=== PATIENT | female | born 1950 | race Caucasian/White ===

== ENCOUNTER 2018-02-10 13:27 | Emergency (ER) | payer SELFPAY ==
--- NOTE | 2018-02-10 13:45 | EDPHY ---
H & P Stated Complaint: RESP ISSUES FOR 3 MONTHS Source: Patient Exam Limitations: No limitations - Personal History Current Tetanus/Diphtheria Vaccine: Unsure - Medical/Surgical History Hx Asthma: No Hx Chronic Respiratory Disease: No Hx Diabetes: No Hx Cardiac Disease: No Hx Renal Disease: No Hx Cirrhosis: No Hx Alcoholism: No Hx HIV/AIDS: No Hx Splenectomy or Spleen Trauma: No Other PMH: denies - Social History Smoking Status: Former smoker Time Seen by Provider: 02/10/18 13:44 HPI/ROS: HPI: This is a 67-year-old female who presents with Chief Complaint: Respiratory issues for 3 months Location: chest Quality: dyspnea Duration: 3 months Signs and Symptoms: no shortness of breath at rest, no shortness of breath on exertion, + productive cough, no chest pain, no palpitations, no lower extremity edema, no wheezing, no orthopnea, no paroxysmal nocturnal dyspnea, no fever, no injury/trauma, no hemoptysis, no carpal pedal spasms Timing: Daily, worsening Severity: moderate Context:Patient is a former light smoker presents complaints with productive cough is associated pleuritic bilateral anterior chest discomfort that has been worsening the last 1 week. She reports that in September in October she had which she believed to be the flu and bronchitis. She did not see a doctor at that time and just use supportive measures. She reports that the cough has continued daily and is worse at night. She is most concerned that that over the last 1-2 weeks the cough has now become productive with associated discomfort with coughing spells and fatigue. No history of lung disease. No long distance travel. Does not have a primary care provider. Modifying Factors: [id number] methods no relief Comment: ROS: see HPI Constitutional: No fever, no chills, no weight loss Eyes: No blurred vision Respiratory: No shortness of breath, no cough Cardiovascular: No chest pain, no palpitations, no lower extremity edema Gastrointestinal: No nausea, no vomiting, no diarrhea Genitourinary: No dysuria Extremities: No myalgias Neurologic: No weakness, no numbness Skin: No rashes Hematologic: No bruising, no bleeding MEDICAL/SURGICAL/SOCIAL HISTORY: Medical history: Generally healthy. Does not take any regular medications. Surgical history: Denies Social history: Former smoker. Retired. Lives in [place]. CONSTITUTIONAL: Polite and cooperative, nontoxic-appearing elderly white female , awake and alert, no obvious distress HEENT: Atraumatic and normocephalic, PERRL, EOMI. Nares patent; no rhinorrhea; no nasal mucosal edema. Tympanic membranes clear. Oropharynx clear, no exudate and moist pink mucosa. Airway patent. No lymphadenopathy. No meningismus. Cardiovascular: Normal S1/S2, regular rate, regular rhythm, without murmur rub or gallop. PULMONARY/CHEST: Symmetrical and nontender. Clear to auscultation bilaterally. Good air movement. No accessory muscle usage. ABDOMEN: Soft, nondistended, nontender, no rebound, no guarding, no peritoneal signs, no masses or organomegaly. No CVAT. EXTREMITIES: 2/2 pulses, strength 5/5, no deformities, no clubbing, no cyanosis or edema. NEUROLOGICAL: no focal neuro deficits. GCS 15. SKIN: Warm and dry, pallor, no erythema. no rash. Good capillary refill. (Marti Young) Constitutional: Initial Vital Signs Temperature (C) 37.3 C 02/10/18 13:34 Heart Rate 77 02/10/18 13:34 Respiratory Rate 18 02/10/18 13:34 Blood Pressure 158/110 H 02/10/18 13:34 O2 Sat (%) 95 02/10/18 13:34 O2 Delivery Mode Room Air Allergies/Adverse Reactions: Penicillins Allergy (Verified 02/10/18 13:34) Sulfa (Sulfonamide Antibiotics) Allergy (Verified 02/10/18 13:34) Home Medications: Medication Instructions Recorded Albuterol Sulfate [Proair Hfa] 8.5 gm IH Q4 PRN #1 hfa.aer.ad 02/10/18 Azithromycin [Zithromax] 250 mg PO DAILY #6 tab 02/10/18 predniSONE [predniSONE TAPER] 10 mg PO DAILY 6 Days ea 02/10/18 Medical Decision Making - Diagnostics EKG Interpretation: EKG: Complete interpretation has been separately recorded in the [facility] archive. Summary impression: Sinus rhythm, rate 68 (Tarik Lawrence) Imaging Results: Imaging Impressions Chest X-Ray 02/10/18 13:50 Impression: Suspect airways disease. ED Course/Re-evaluation: Vital signs reviewed upon arrival and no systemic signs. EKG, chest x-ray, labs ordered Reviewed labs. No signs of leukocytosis/anemia/GONSALO/elevated LFTs/electrolyte imbalance/VTE/ACS/CHF. Chest x-ray my read shows airway disease. No opacity/effusion/pneumothorax. Due to worsening of symptoms and symptoms greater than 10 days; will give antibiotics, albuterol inhaler, steroid course. Patient is to establish care with [facility]. This patient was seen under the supervision of my secondary supervising physician. I evaluated care for this patient independently. Discussed this patient with Dr. Lawrence who did not see the patient. (Marti Young) Differential Diagnosis: Shortness of breath including but not limited to pulmonary infectious process, COPD, asthma, pulmonary embolus and congestive heart failure. (Marti Young) - Data Points Laboratory Results: Laboratory Results 02/10/18 14:25 02/10/18 14:25 02/10/18 02/10/18 02/10/18 14:25 14:25 14:25 WBC 7.83 10^3/uL 10^3/uL (3.80-9.50) RBC 4.79 10^6/uL 10^6/uL (4.18-5.33) Hgb 15.0 g/dL g/dL (12.6-16.3) Hct 43.6 % % (38.0-47.0) MCV 91.0 fL fL (81.5-99.8) MCH 31.3 pg pg (27.9-34.1) MCHC 34.4 g/dL g/dL (32.4-36.7) RDW 14.1 % % (11.5-15.2) Plt Count 224 10^3/uL 10^3/uL (150-400) MPV 9.6 fL fL (8.7-11.7) Neut % (Auto) 67.5 % % (39.3-74.2) Lymph % (Auto) 18.6 % % (15.0-45.0) [place] % (Auto) 11.1 % % (4.5-13.0) Eos % (Auto) 1.8 % % (0.6-7.6) Baso % (Auto) 0.6 % % (0.3-1.7) Nucleat RBC Rel Count 0.0 % % (0.0-0.2) Absolute Neuts (auto) 5.28 10^3/uL 10^3/uL (1.70-6.50) Absolute Lymphs (auto) 1.46 10^3/uL 10^3/uL (1.00-3.00) Absolute Monos (auto) 0.87 10^3/uL H 10^3/uL (0.30-0.80) Absolute Eos (auto) 0.14 10^3/uL 10^3/uL (0.03-0.40) Absolute Basos (auto) 0.05 10^3/uL 10^3/uL (0.02-0.10) Absolute Nucleated RBC 0.00 10^3/uL 10^3/uL (0-0.01) Immature Gran % 0.4 % % (0.0-1.1) Immature Gran # 0.03 10^3/uL 10^3/uL (0.00-0.10) D-Dimer 0.49 ug/mLFEU ug/mLFEU (0.00-0.50) Sodium 141 mEq/L mEq/L (135-145) Potassium 4.1 mEq/L mEq/L (3.5-5.2) Chloride 107 mEq/L mEq/L (97-110) Carbon Dioxide 21 mEq/l L mEq/l (22-31) Anion Gap 13 mEq/L mEq/L (8-16) BUN 13 mg/dL mg/dL (7-23) Creatinine 0.7 mg/dL mg/dL (0.6-1.0) Estimated GFR > 60 Glucose 89 mg/dL mg/dL (70-100) Calcium 9.0 mg/dL mg/dL (8.5-10.4) Troponin I < 0.012 ng/mL ng/mL (0.000-0.034) NT-Pro-B Natriuret Pep 109 pg/mL pg/mL (0-125) 02/10/18 02/10/18 02/10/18 13:58 13:58 13:58 WBC 7.78 10^3/uL 10^3/uL (3.80-9.50) RBC 4.76 10^6/uL 10^6/uL (4.18-5.33) Hgb 15.0 g/dL g/dL (12.6-16.3) Hct 43.6 % % (38.0-47.0) MCV 91.6 fL fL (81.5-99.8) MCH 31.5 pg pg (27.9-34.1) MCHC 34.4 g/dL g/dL (32.4-36.7) RDW 14.0 % % (11.5-15.2) Plt Count 249 10^3/uL 10^3/uL (150-400) MPV 10.5 fL fL (8.7-11.7) Neut % (Auto) 68.9 % % (39.3-74.2) Lymph % (Auto) 17.7 % % (15.0-45.0) [place] % (Auto) 10.9 % % (4.5-13.0) Eos % (Auto) 1.5 % % (0.6-7.6) Baso % (Auto) 0.6 % % (0.3-1.7) Nucleat RBC Rel Count 0.0 % % (0.0-0.2) Absolute Neuts (auto) 5.35 10^3/uL 10^3/uL (1.70-6.50) Absolute Lymphs (auto) 1.38 10^3/uL 10^3/uL (1.00-3.00) Absolute Monos (auto) 0.85 10^3/uL H 10^3/uL (0.30-0.80) Absolute Eos (auto) 0.12 10^3/uL 10^3/uL (0.03-0.40) Absolute Basos (auto) 0.05 10^3/uL 10^3/uL (0.02-0.10) Absolute Nucleated RBC 0.00 10^3/uL 10^3/uL (0-0.01) Immature Gran % 0.4 % % (0.0-1.1) Immature Gran # 0.03 10^3/uL 10^3/uL (0.00-0.10) D-Dimer REJ Sodium REJ Potassium REJ Chloride REJ Carbon Dioxide REJ Anion Gap REJ BUN REJ Creatinine REJ Estimated GFR REJ Glucose REJ Calcium REJ Troponin I REJ NT-Pro-B Natriuret Pep REJ Departure - Departure Disposition: Home, Routine, Self-Care Clinical Impression: Acute bacterial bronchitis Condition: Good Instructions: Acute Bronchitis (ED), Acute Cough (ED) Additional Instructions: Chest x-ray today shows no signs of pneumonia. Labs are normal and there are no signs of acute coronary syndrome or congestive heart failure. It appears that you have reactive airway disease with superimposed bacterial bronchitis. Start taking azithromycin, prednisone taper and use albuterol inhaler as needed for wheezing and shortness of breath. Return to the ER immediately if you experience fevers/chills, shortness of breath, abdominal pain, inability to tolerate oral intake, or any other symptoms that concern you. Referrals: [facility],. [Clinic] - As per Instructions Prescriptions: Albuterol Sulfate [Proair Hfa] 8.5 gm IH Q4 PRN #1 hfa.aer.ad PRN Reason: Short Of Breath/Dyspnea Azithromycin [Zithromax] 250 mg PO DAILY #6 tab predniSONE [predniSONE TAPER] 10 mg PO DAILY 6 Days ea
--- NOTE | 2018-02-10 13:55 | CPEKG ---
Heart Rate: 68 RR Interval: 882 QRSD Interval: 88 QT Interval: 440 QTC Interval: 469 QRS [place]: -67 T Wave [place]: 49 EKG Severity - ABNORMAL ECG - EKG Impression: ACCELERATED JUNCTIONAL ESCAPE RHYTHM EKG Impression: LEFT ANTERIOR FASCICULAR BLOCK Electronically Signed By: Tarik Lawrence 10-Feb-2018 14:08:02
[2018-02-10 14:07] LABS: PLATELET COUNT 249 10^3/uL (150-400)
[2018-02-10 14:36] LABS: PLATELET COUNT 224 10^3/uL (150-400)
[2018-02-10 15:49] VITALS: BP 158/96
== END 2018-02-10 15:50 | disposition home or self-care (01) ==
DX: J20.8 Acute bronchitis due to other specified organisms (principal); Z87.891 Personal history of nicotine dependence

== ENCOUNTER 2019-03-29 11:52 | Emergency (ER) | payer OTHER, MEDICAID | END 2019-03-29 12:33 | disposition home or self-care (01) ==